=== PATIENT | male | born 1955 | race Caucasian/White ===

== ENCOUNTER 2017-10-16 16:12 | Outpatient (CLI) | payer BC ==
[2017-10-16 16:41] LABS: #Eosinphils 0.2 thou/uL (0.0-0.7); #Lymphocytes 2.2 thou/uL (1.20-3.40); #Monocytes 0.9 thou/uL (0.11-0.59); #Neutrophils 3.5 thou/uL (1.40-6.50); %Basophils 0.2 % (0.0-1.0); %Eosinophils 2.4 % (0.0-10.0); %Lymphocytes 32.5 % (21.0-51.0); %Monocytes 13.1 % (0.0-10.0); %Neutrophils 51.7 % (42.0-75.0); Hemoglobin 14.9 g/dL (14.0-18.0); Mean Corpuscular HGB CONC 34.1 g/dL (32.0-36.0); Mean Corpuscular Volume 93.7 fl (80.0-94.0); Mean Platelet Volume 7.6 fL (7.4-10.4); Platelet Count 241 thou/uL (130-400); RBC Distribution Width 12.6 % (11.5-14.5); Red Blood Cell (RBC) Count 4.66 mill/uL (4.70-6.10); White Blood Cell (WBC) Count 6.7 thou/uL (4.8-10.8)
[2017-10-16 17:01] LABS: ALT (SGPT) 24 U/L (8-55); AST (SGOT) 23 U/L (5-34); Albumin 4.3 g/dL (3.4-4.8); Alkaline Phosphatase 76 U/L (40-150); Anion Gap 9 mmol/L (10-20); BUN (Urea Nitrogen) 11 mg/dL (8.4-25.7); Bilirubin, Total 0.6 mg/dL (0.2-1.2); Calc. Creatinine Clearance 0 mL/min (70-130); Calcium 9.4 mg/dL (7.8-10.44); Carbon Dioxide 28 mmol/L (23-31); Chloride 102 mmol/L (98-107); Estimated GFR-MDRD 71; Globulin 2.4 g/dL (2.4-3.5); Glucose 96 mg/dL (80-115); Potassium 4.3 mmol/L (3.5-5.1); Protein, Total 6.7 g/dL (5.8-8.1); Sodium 135 mmol/L (136-145)
--- NOTE | 2017-10-18 20:16 | EKG ---
Test Reason : Blood Pressure : / mmHG Vent. Rate : 065 BPM Atrial Rate : 065 BPM P-R Int : 158 ms QRS Dur : 098 ms QT Int : 384 ms P-R-T Axes : 049 -16 014 degrees QTc Int : 399 ms Normal sinus rhythm Normal ECG No previous ECGs available Confirmed by TOSHIA BAUER (2) on 10/18/2017 8:16:24 PM Referred By: SUDHA Confirmed By:TOSHIA BAUER
== END 2017-10-16 16:13 | disposition home or self-care (01) ==
LOC: LABBT 16:12
PROVIDERS: ATTEND Surgery
DX: Z01.818 Encounter for other preprocedural examination (principal); D17.9 Benign lipomatous neoplasm, unspecified
CPT/HCPCS: 80053; 85025; 93005; 93010

== ENCOUNTER 2017-10-23 06:58 | Day surgery (SDC) | payer BC ==
[2017-10-16 15:46] VITALS: BMI 25.2
[2017-10-23] MEDS ORDERED: CEFAZOLIN/Water 2 GM/20 ML SYRINGE ONE (07:46)
[2017-10-23] MEDS ORDERED: Levofloxacin 500 mg/D5W 100 ml Premix Bag ONE (08:01)
[2017-10-23] MEDS ORDERED: Fentanyl 100 MCG/2 ML VIAL ONE (10:08)
[2017-10-23] MEDS ORDERED: Midazolam HCl 2 mg/2 ml Vial ONE (10:08)
[2017-10-23] MEDS ORDERED: Lidocaine 2% 10 ML INJ ONE (10:14)
[2017-10-23] MEDS ORDERED: Bupivacaine HCl 0.5%/Epinephrine 1:200,000/PF 30 ml Vial ONE (10:14)
[2017-10-23] MEDS ORDERED: Dexamethasone 20 MG/5 ML VIAL ONE (11:09)
[2017-10-23] MEDS ORDERED: Glycopyrrolate 0.2 MG/ML 5 ML SYRINGE ONE (11:09)
[2017-10-23] MEDS ORDERED: Lidocaine 1% PF 5 ML VIAL ONE (11:09)
[2017-10-23] MEDS ORDERED: PROPOFOL 200 MG/20 ML VIAL ONE (11:09)
[2017-10-23] MEDS ORDERED: Ondansetron HCl/PF 4 MG/2 ML Vial ONE (11:09)
--- NOTE | 2017-10-23 12:29 | OP ---
PREOPERATIVE DIAGNOSIS: Lipoma of right gluteus. SURGEON: Gonzalez Larsen M.D. PROCEDURE PERFORMED: Excision of 6 cm sebaceous cyst from right gluteus near anus. INDICATIONS: A 62-year-old male with a slowly enlarging soft tissue mass just lateral to the anus on the right gluteus. It was a 6 cm in diameter. FINDINGS: Turned out to be a sebaceous cyst. PROCEDURE IN DETAIL: After informed consent was obtained, the patient was taken to the operating rohith m and given general endotracheal anesthesia. He was placed in the prone jackknife position. His but tock cheeks were spread apart with tape. His skin was prepped and draped in usual fashion. Local an esthesia infiltrated subcutaneously and deep and an elliptical incision was performed. The cyst wall was found. It was dissected out circumferentially and then removed; however, it was punctured durin g the removal process. It was non-foul smelling. It was sent to pathology for further analysis. He mostasis was achieved with electrocautery. The wound was thoroughly irrigated with saline. Then the subcutaneous was reapproximated with interrupted 3-0 Vicryl and the skin closed with a running subcu ticular 4-0 Rapide. Dermabond applied. The patient tolerated the procedure well and was transferred to recovery in good condition. Sponge and needle count verified correct x2.
== END 2017-10-23 12:44 | disposition home or self-care (01) ==
LOC: SDC 06:58
PROVIDERS: ATTEND Surgery
PROC: 0JB93ZZ Excision of Buttock Subcutaneous Tissue and Fascia, Percutaneous Approach (ICD-10-PCS; principal; 2017-10-23)
DX: L72.0 Epidermal cyst (principal); Z88.0 Allergy status to penicillin
CPT/HCPCS: 88304; J0670; J1100; J1956; J2001; J2250; J2405; J2704; J3010